=== PATIENT | female | born 1980 | race Caucasian/White ===

== ENCOUNTER 2022-08-19 12:43 | Outpatient (CLI) | payer MEDICARE | END 2022-08-19 12:44 | disposition critical access hospital (66) | LOC: EMS 12:43 | DX: R11.2 Nausea with vomiting, unspecified (principal); R10.13 Epigastric pain | CPT/HCPCS: A0425; A0427 ==

== ENCOUNTER 2022-08-19 13:05 | Emergency (ER) | payer MEDICARE ==
[2022-08-19 13:15] VITALS: BP 140/90
--- NOTE | 2022-08-19 13:24 | ED Physician Documentation ---
PD HPI NVD - Stated complaint Stated Complaint: N/V - Chief complaint Chief Complaint: Abd Pain - History obtained from History obtained from: Patient - History of Present Illness Timing - onset: Today, Last night Timing - duration: Hours Timing - details: Gradual onset, Still present Associated symptoms: Abdominal pain (diffuse crampy). No: Fever, Chest pain Contributing factors: Other (She and other family members had nausea vomiting and diarrhea a week ago presumed viral and all had resolved. She had been well for a few days and now onset vomiting and some loose stool again today.). No: Sick contact, Bad food Similar symptoms before: No diagnosis (had apparent viral GE a week ago along with several family members and all resolved over couple days. Patient without GI symptoms for 2-3 days and now with abrupt N/V/D today.) Recently seen: Not recently seen Review of Systems Constitutional: denies: Fever, Chills Nose: denies: Rhinorrhea / runny nose, Congestion Throat: denies: Sore throat Cardiac: denies: Chest pain / pressure Respiratory: denies: Dyspnea, Cough GI: reports: Abdominal Pain (cramping lower abd), Nausea, Vomiting, Diarrhea (several times today) : denies: Dysuria Neurologic: reports: Generalized weakness. denies: Focal weakness, Numbness, Near syncope, Headache PD PAST MEDICAL HISTORY - Past Medical History Cardiovascular: None Respiratory: None Neuro: None WHEEL ROLLER: Endometriosis Musculoskeletal: Fibromyalgia - Past Surgical History General: Cholecystectomy /WHEEL ROLLER: Endometrial ablation, Hysterectomy, Oophrectomy - Present Medications Home Medications: Ambulatory Orders Medication Instructions Recorded Confirmed Diphenoxylate/Atropine [Lomotil] 1 each PO QID PRN #12 tablet 08/19/22 Ondansetron Odt [Zofran] 4 mg TL Q6H PRN #20 tablet 08/19/22 Promethazine [Phenergan] 25 mg PO Q6H PRN #15 tab 08/19/22 - Allergies Allergies/Adverse Reactions: Allergies Allergy/AdvReac Type Severity Reaction Status Date / Time Penicillins Allergy Rash Verified 08/19/22 13:10 - Social History Does the pt smoke?: No Substance Use and Type: Marijuana PD ED PE NORMAL - Vitals Vital signs reviewed: Yes - General General: Alert and oriented X 3, Well developed/nourished, Other (appears very uncomfortable holding emesis bag and having cramping pains. ) - Neck Neck: Supple, no meningeal sign, No adenopathy - Cardiac Cardiac: RRR, No murmur - Respiratory Respiratory: Clear bilaterally - Abdomen Abdomen: Soft, Non distended. No: Normal bowel sounds (decreased) - Derm Derm: Normal color, Warm and dry - Extremities Extremities: No edema, No calf tenderness / cord - Neuro Neuro: Alert and oriented X 3, No motor deficit, Normal speech Results - Vitals Vitals: Vital Signs - 24 hr 08/19/22 08/19/22 08/19/22 13:10 13:15 15:15 Temperature 36.7 C 36.7 C Heart Rate 90 90 Respiratory 16 16 Rate Blood Pressure 140/90 H 140/90 H O2 Saturation 99 99 99 Oxygen O2 Source Room air - Labs Labs: Laboratory Tests 08/19/22 08/19/22 08/19/22 13:27 13:27 13:27 WBC 20.1 H RBC 4.80 Hgb 14.3 Hct 42.9 MCV 89.4 MCH 29.8 MCHC 33.3 RDW 11.9 L Plt Count 443 MPV 8.4 Neut # (Auto) 17.8 H Lymph # (Auto) 1.3 L [place] # (Auto) 0.9 Eos # (Auto) 0.1 Baso # (Auto) 0.0 Absolute Nucleated RBC 0.00 Nucleated RBC % 0.0 Manual Slide Review Indicated RBC Morph Micro Appear 1+ ANISOCYTOSIS Sodium 140 Potassium 4.0 Chloride 108 Carbon Dioxide 22 Anion Gap 10.0 BUN 21 H Creatinine 0.9 Estimated GFR (MDRD) 69 L Glucose 130 H Calcium 8.7 Magnesium 1.7 Total Bilirubin 0.4 AST 15 ALT 12 Alkaline Phosphatase 54 Total Protein 7.4 Albumin 3.9 Globulin 3.5 Albumin/Globulin Ratio 1.1 Lipase 34 PD Medical Decision Making - ED course Complexity details: considered differential (had presumed viral GE a week ago along with family members, all of whom are better. Patient was better. Now with N/V/D starting last night. consider resurgence of prior GE, secondary enteritis such as C.Diff. or even other cause like cannibis hyperemesis. ), d/w patient Reviewed Lab Results: elevated WBC at 20K. Basic chemistry is normal. GLucose snd electrolytes without acute abnormality. She did not have stool here, was going to test for C. Diff. Drug Therapy Requiring Monitoring for Toxicity: Given IV fluids for hydration, since vomiting since last night. Denied melena. Did not have stool in ER. Given Inapsine 1.25 mg IV as she had gotten Zofran enroute without much improvement. She asked for Ativan rather than opioid initially, and this did seem to help a fair amount. Still some crmaping. Recheck of abdomen without much tenderness other than what she says is baseline chronic lower abd tender/pain. Able to take fluids and crackers here. She feels improved and shared decision to discharge. Did not give stool, but can go without for now but will want to study stool if persistent more than 1-2 days. Departure - Departure Disposition: 01 Home, Self Care Clinical Impression: Generalized abdominal pain Nausea and vomiting Qualifiers: Vomiting type: unspecified Qualified Code(s): R11.2 - Nausea with vomiting, unspecified Condition: Stable Record reviewed to determine appropriate education?: Yes Instructions: ED Abdominal Pain Female Non-Specific Abdominal Pain, ED Nausea Vomiting Follow-Up: ABRAHAM REYNOLDS PA-C [Primary Care Provider] - Prescriptions: Diphenoxylate/Atropine [Lomotil] 1 each PO QID PRN #12 tablet PRN Reason: Diarrhea Promethazine [Phenergan] 25 mg PO Q6H PRN #15 tab PRN Reason: Nausea / Vomiting Ondansetron Odt [Zofran] 4 mg TL Q6H PRN #20 tablet PRN Reason: Nausea / Vomiting Comments: Small frequent fluids and bland food today and into tomorrow. It is unclear at this point whether you have a recurrence of the viral gastroenteritis or a new 1. Other concern would be the stomach flu from last week having triggered more of a bacterial type infection such as C. difficile or Shigella etc. You have not had to have a bowel movement at this point which is a good thing. If you have persistence of these symptoms beyond another 1 or 2 days, then we may need to consider stool testing to ensure no bacterial component. Meanwhile we will is work on the idea of a viral illness or just inflammatory with the combination of ondansetron/Zofran if needed for nausea with promethazine as a backup to that if not improved enough with the Zofran. Continue your other usual medications. You can use Imodium or Lomotil for some diarrhea. Tylenol if needed for pains. Recheck if not improved over the next couple of days and return if worse. I sent your prescriptions to your preferred pharmacy. Discharge Date/Time: 08/19/22 15:25
[2022-08-19 13:33] LABS: BASOPHILS % (AUTO) 0.2 %; EOSINOPHILS # (AUTO) 0.1 10^3/uL (0.0-0.7); EOSINOPHILS % (AUTO) 0.3 %; HCT - HEMATOCRIT 42.9 % (37.0-47.0); HGB - HEMOGLOBIN 14.3 g/dL (12.0-16.0); LYMPHOCYTES # (AUTO) 1.3 10^3/uL (1.5-3.5); LYMPHOCYTES % (AUTO) 6.4 %; MEAN CORPUSCULAR HEMOGLOBIN 29.8 pg (27.0-31.0); MEAN CORPUSCULAR HGB CONC 33.3 g/dL (32.0-36.0); MEAN CORPUSCULAR VOLUME 89.4 fL (81.0-99.0); MEAN PLATELET VOLUME 8.4 fL (7.9-10.8); MONOCYTES # (AUTO) 0.9 10^3/uL (0.0-1.0); MONOCYTES % (AUTO) 4.2 %; NEUTROPHILS # (AUTO) 17.8 10^3/uL (1.5-6.6); NEUTROPHILS % (AUTO) 88.5 %; PLT - PLATELET COUNT 443 10^3/uL (130-450); RED CELL DISTRIBUTION WIDTH 11.9 % (12.0-15.0); WHITE BLOOD COUNT 20.1 x10^3/uL (4.8-10.8)
[2022-08-19] MEDS ORDERED: DROPERIDOL 5 MG/2 ML VIAL IVP STA (13:43)
[2022-08-19] MEDS ORDERED: SODIUM CHLORIDE 0.9% 1,000 ML IV STA (13:43)
[2022-08-19] MEDS ORDERED: LORazepam 2 MG/ML VIAL IVP STA (13:43)
[2022-08-19 13:45] LABS: ALBUMIN 3.9 g/dL (3.2-5.5); ALBUMIN/GLOBULIN RATIO 1.1 (1.0-2.2); BILIRUBIN,TOTAL 0.4 mg/dL (0.2-1.0); CALCIUM 8.7 mg/dL (8.5-10.3); CREATININE 0.9 mg/dL (0.4-1.0); SLIDE REVIEW? Indicated; TOTAL PROTEIN 7.4 g/dL (6.7-8.2)
[2022-08-19 14:10] LABS: RBC MORPHOLOGY (MULTIPLE) 1+ ANISOCYTOSIS (NORMAL)
[2022-08-19] MEDS ORDERED: KETOROLAC 15 MG/ML VIAL IVP STA (15:02)
[2022-08-19] MEDS ORDERED: LOPERAMIDE 2 MG CAPSULE PO STA (15:03)
== END 2022-08-19 15:25 | disposition home or self-care (01) ==
LOC: ED 13:05
DX: R10.84 Generalized abdominal pain (principal); R11.2 Nausea with vomiting, unspecified
CPT/HCPCS: 36415; 80053; 83690; 83735; 85025; 96374; 96375; 99283; 99284; A9270; J2060